=== PATIENT | female | born 1955 | race Caucasian/White ===

== ENCOUNTER → 2017-02-17 | Outpatient (CLI) | payer BC ==
[~2017-02-17] MED LIST: ALPR-411 PO; CALC500C70 PO; CETI10TA84 PO; CHOL1000 PO; DEXL60CA4 PO; DICL-201 PO; MULTTAB58 PO; SERT50TA PO; [UNRECOGNIZED DRUG - CODE] PO
--- NOTE | 2017-02-17 09:16 | DIAGNOSTIC IMAGING REPORT ---
ABDOMEN GI AND SMALL BOWEL FOLLOW-THROUGH CLINICAL HISTORY: Abdominal pain, radiating to the right upper quadrant. Constipation, weight loss, bloating. COMPARISON STUDY: None FLUOROSCOPY TIME: 2.5 minutes. 33 fluoroscopic spot images were acquired.. FINDINGS: No esophageal or gastric masses are visualized. The duodenal bulb appears normal. Ligament Treitz is located in the normal anatomical position. The patient was administered Enterovue a small bowel follow-through was performed. Contrast reached the colon 40 minutes. No abnormally dilated loops of jejunum or ileum are visualized. There is no evidence for abnormal loop separation. Spot films of terminal ileum are normal. IMPRESSION: Normal study Electronically signed by: Damien Coello M.D. 02/17/2017 9:14 AM Dictated Date/Time: 02/17/2017 9:10 AM
== END | disposition home or self-care (01) ==
LOC: C.RAD 07:55
PROVIDERS: ATTEND Physician Assistant
DX: R10.9 Unspecified abdominal pain (principal)

== ENCOUNTER → 2017-02-24 | Day surgery (SDC) | payer BC ==
[2017-02-21 14:40] VITALS: Ht 162.6 cm; Wt 56.8 kg
[~2017-02-24] VITALS: Ht 162.6 cm; Wt 56.8 kg
[~2017-02-24] MED LIST changes: +LIDOCAINE HCL 2% 2 ML VIAL (20MG/ML) ONE; +MIDAZOLAM HCL 1 MG/ML 2ML VIAL ONE; +ONDANSETRON INJ 2 MG/ML 2 ML VIAL ONE; +PROPOFOL IV EMULSION 10 MG/ML 20 ML VIAL IV ONE; +SODIUM CHLORIDE 0.9% 500ML 500 ML IV ONE
[2017-02-24 09:18] VITALS: TEMP 36.5
--- NOTE | 2017-02-24 09:38 | Endo History and Physical ---
History & Physical Date of Service: Feb 24, 2017. Chief Complaint: BOWEL CHANGES Referring Physician: DR. TO History of Present Illness 62 yo CF who presents for colonoscopy secondary to change in bowel habits. Past Surgical History Hx Cardiac Surgery: No Hx Internal Defibrillator: No Hx Pacemaker: No Hx Abdominal Surgery: Yes ( X2) Hx of Implantable Prosthesis: No Hx Post-Op Nausea and Vomiting: Yes Hx Cancer Surgery: No Hx Thoracic Surgery: No Hx Orthopedic: No Hx Urinary Tract Surgery: No Family History None Social History Smoking Status: Never Smoker Hx Substance Use: No Hx Alcohol Use: No Allergies Coded Allergies: Adhesives (Verified Allergy, Unknown, RASH, 02/21/17) Metronidazole (Verified Allergy, Unknown, WEAKNESS, UNABLE TO WALK, INCOHERENT, 02/21/17) Sulfa Antibiotics (Verified Allergy, Unknown, LOWER ABDOMEN CRAMPING, 02/21) Current Medications Reported Home Medications Medications Dose Route/Sig Max Daily Dose Days Date Category Dose Instructions Xanax (Alprazolam) 0.5 Mg Tab 0.5 Mg PO HS 02/21/17 Reported Os-Barry 500 Plus D (Calcium/Vitamin D) Tab 1 Tab PO DAILY 02/21/17 Reported Vitamin D3 (Cholecalciferol) 1,000 Unit Tab 1 Tab PO DAILY 02/21/17 Reported Multivitamin (Multiple Vitamin) 1 Tab Tab 1 Tab PO DAILY 02/21/17 Reported Voltaren (Diclofenac Sodium) 75 Mg Tabcr 75 Mg PO BID 02/21/17 Reported WITH FOOD Zoloft (Sertraline HCl) 50 Mg Tab 50 Mg PO QAM 02/21/17 Reported Angeliq (Drospirenone-Estradiol) 1 Tab Tab 0.5 Tab PO Q2D 02/21/17 Reported Dexilant (Dexlansoprazole) 60 Mg Cap 1 Tab PO HS 02/21/17 Reported Zyrtec (Cetirizine HCl) 10 Mg Tab 10 Mg PO QAM 02/21/17 Reported Vital Signs Weight (Kilograms): 56.82 Height (Feet): 5 Height (Inches): 4 Date Time Temp Pulse Resp B/P Pulse Ox O2 Delivery O2 Flow Rate FiO2 02/24/17 09:18 36.5 80 20 111/73 98 Room Air Physical Exam General Appearance: WD/WN, no apparent distress Respiratory/Chest: Auscultation: breath sounds normal Cardiovascular: Heart Auscultation: RRR Abdomen: Bowel Sounds: normal Inspection & Palpation: soft, non-distended, no tenderness, guarding & rebound Assessment and Plan Assessment: 62 yo CF who presents for colonoscopy secondary to change in bowel habits. Plan: Proceed with colonoscopy.
--- NOTE | 2017-02-24 10:18 | Discharge Instructions ---
Endoscopy Patient Instructions Date / Procedure(s) Performed Feb 24, 2017. Colonoscopy Allergy Information Coded Allergies: Adhesives (Verified Allergy, Unknown, RASH, 02/21/17) Metronidazole (Verified Allergy, Unknown, WEAKNESS, UNABLE TO WALK, INCOHERENT, 02/21/17) Sulfa Antibiotics (Verified Allergy, Unknown, LOWER ABDOMEN CRAMPING, 02/21) Discharge Date / Findings Feb 24, 2017. Normal colonoscopy with random colon biopsies and stool studies collected Medication Instructions OK to resume all medications today as prescribed Reported Home Medications Medications Dose Route/Sig Max Daily Dose Days Date Category Dose Instructions Xanax (Alprazolam) 0.5 Mg Tab 0.5 Mg PO HS 02/21/17 Reported Os-Barry 500 Plus D (Calcium/Vitamin D) Tab 1 Tab PO DAILY 02/21/17 Reported Vitamin D3 (Cholecalciferol) 1,000 Unit Tab 1 Tab PO DAILY 02/21/17 Reported Multivitamin (Multiple Vitamin) 1 Tab Tab 1 Tab PO DAILY 02/21/17 Reported Voltaren (Diclofenac Sodium) 75 Mg Tabcr 75 Mg PO BID 02/21/17 Reported WITH FOOD Zoloft (Sertraline HCl) 50 Mg Tab 50 Mg PO QAM 02/21/17 Reported Angeliq (Drospirenone-Estradiol) 1 Tab Tab 0.5 Tab PO Q2D 02/21/17 Reported Dexilant (Dexlansoprazole) 60 Mg Cap 1 Tab PO HS 02/21/17 Reported Zyrtec (Cetirizine HCl) 10 Mg Tab 10 Mg PO QAM 02/21/17 Reported Provider Instructions Activity Restrictions - No exercising or heavy lifting for 24 hours. - Do not drink alcohol the day of the procedure. - Do not drive a car or operate machinery until the day after the procedure. - Do not make any important decisions or sign important papers in 24 hours after the procedure. Following Day: - Return to full activity which may include returning to work/school. Diet Start your diet with liquids and light foods (jello, soup, juice, toast). Then eat your usual diet if not nauseated. Treatment For Common After Affects For mild abdominal pain, bloating, or excessive gas: - Rest - Eat lightly - Lie on right side Follow-Up Information Follow-up with DR. TO as scheduled Anesthesia Information What You Should Know You have had a procedure that required some medicine to reduce anxiety and discomfort. This treatment is called moderate sedation. After receiving the treatment, you may be sleepy, but you will be able to breathe on your own. The effects of the treatment may last for several hours. Follow these instructions along with Activity/Diet recommendations noted above: * Do NOT do anything where dizziness or clumsiness would be dangerous. * Rest quietly at home today, then you can be up and about tomorrow. * Have a responsible person stay with you the rest of today. * You may have had an I.V. today. If so, you may take the dressing off later today. Recommendations Call your doctor if: * Trouble breathing * Continuous vomiting for more than 24 hours * Temperature above 101 degrees * Severe abdominal pain or bloating * Pain not relieved by pain medicine ordered * There is increased drainage or redness from any incision * A large amount of rectal bleeding greater than 2-3 tablespoons. (If you had a polyp/s removed or have hemorrhoids, a small amount of blood - from the rectum is to be expected.) * You have any unanswered questions or concerns. IN THE EVENT OF A SERIOUS EMERGENCY, GO TO THE NEAREST EMERGENCY ROOM Your discharge instructions were prepared by provider Seb Chang. Patient Instructions Signature Page Maria De Jesus Negro Patient (or Guardian) Signature/Date: I have read and understand the instructions given to me by my caregivers. Caregiver/RN/Doctor Signature/Date: The above-named patient and/or guardian has received patient instructions on this date. + Original Patient Signature Page (only) stays with chart. Please make copy for patient.
--- NOTE | 2017-02-24 10:38 | Anesthesiology Progress Note ---
Anesthesia Post Op Note Date & Time Feb 24, 2017 at 10:37 Vital Signs Pain Intensity: 0 Vital Signs Past 12 Hours Date Time Temp Pulse Resp B/P Pulse Ox O2 Delivery O2 Flow Rate FiO2 02/24/17 10:27 70 19 109/69 99 Room Air 02/24/17 10:20 75 18 94/60 98 Room Air 02/24/17 09:18 36.5 80 20 111/73 98 Room Air Notes Mental Status: alert / awake / arousable, participated in evaluation Pt Amnestic to Procedure: Yes Nausea / Vomiting: adequately controlled Pain: adequately controlled Airway Patency, RR, SpO2: stable & adequate BP & HR: stable & adequate Hydration State: stable & adequate Anesthetic Complications: no major complications apparent Pt doing well.
--- NOTE | 2017-02-24 10:42 | GI REPORT ---
Procedure Date: 02/24/2017 9:48 AM Procedure: Colonoscopy Indications: Change in bowel habits Medicines: Monitored Anesthesia Care Complications: No immediate complications. Estimated Blood Loss: Estimated blood loss: none. Procedure: Pre-Anesthesia Assessment: - Prior to the procedure, a History and Physical was performed, and patient medications and allergies were reviewed. The patient's tolerance of previous anesthesia was also reviewed. The risks and benefits of the procedure and the sedation options and risks were discussed with the patient. All questions were answered, and informed consent was obtained. Prior Anticoagulants: The patient has taken no previous anticoagulant or antiplatelet agents. ASA Grade Assessment: II - A patient with mild systemic disease. After reviewing the risks and benefits, the patient was deemed in satisfactory condition to undergo the procedure. After I obtained informed consent, the scope was passed under direct vision. Throughout the procedure, the patient's blood pressure, pulse, and oxygen saturations were monitored continuously. The scope was introduced through the anus and advanced to the terminal ileum. The colonoscopy was performed without difficulty. The patient tolerated the procedure well. The quality of the bowel preparation was good. The terminal ileum, ileocecal valve, appendiceal orifice, and rectum were photographed. Findings: The colon (entire examined portion) appeared normal. Several random biopsies were obtained in the entire colon with cold forceps for histology. Fluid aspiration for cytology was performed. Impression: - The entire examined colon is normal. Fluid aspiration performed. - Several random biopsies were obtained in the entire colon. Recommendation: - Resume previous diet. - Continue present medications. - Repeat colonoscopy for surveillance based on pathology results. - Return to primary care physician as previously scheduled. Seb Chang, 02/24/2017 10:20:29 AM This report has been signed electronically. Note Initiated On: 02/24/2017 9:48 AM I attest to the content of the Intraoperative Record and orders documented therein, exceptions below
[2017-02-24 10:54] VITALS: BP 116/71; PULSE 63; O2SAT 99
== END | disposition home or self-care (01) ==
LOC: C.GI 08:51
PROVIDERS: ATTEND Internal Medicine
DX: R19.4 Change in bowel habit (principal); K63.89 Other specified diseases of intestine; Z98.890 Other specified postprocedural states; Z88.2 Allergy status to sulfonamides; Z88.8 Allergy status to other drugs, medicaments and biological substances

== ENCOUNTER → 2017-04-17 | Outpatient (CLI) | payer BC ==
[~2017-04-17] MED LIST changes: -LIDOCAINE HCL 2% 2 ML VIAL (20MG/ML) ONE; -MIDAZOLAM HCL 1 MG/ML 2ML VIAL ONE; -ONDANSETRON INJ 2 MG/ML 2 ML VIAL ONE; -PROPOFOL IV EMULSION 10 MG/ML 20 ML VIAL IV ONE; -SODIUM CHLORIDE 0.9% 500ML 500 ML IV ONE
--- NOTE | 2017-04-17 08:22 | DIAGNOSTIC IMAGING REPORT ---
PELVIC ULTRASOUND, TRANSABDOMINAL AND TRANSVAGINAL HISTORY: PELVIC AND PERINEAL PAIN COMPARISON: Pelvic ultrasound 03/10/2013. FINDINGS: Uterus: 5.9 x 2.9 x 3.7 cm. There are few small nabothian cysts, unchanged. Evidence for scar. Endometrial stripe: 2 mm in thickness. There is minimal fluid within the endometrium. Right ovary: Normal in size and demonstrates normal color flow. Left ovary: Normal in size and demonstrates normal color flow. Miscellaneous:No pelvic free fluid. IMPRESSION: No significant abnormality identified within the pelvis. Electronically signed by: Rony Arenas M.D. 04/17/2017 8:21 AM Dictated Date/Time: 04/17/2017 8:20 AM
== END | disposition home or self-care (01) ==
LOC: C.ULTR 07:33
PROVIDERS: ATTEND Family Medicine
DX: R10.2 Pelvic and perineal pain (principal)

== ENCOUNTER → 2017-07-22 | Outpatient (CLI) | payer BC ==
--- NOTE | 2017-07-23 07:56 | MAMMOGRAPHY REPORT ---
BILATERAL DIGITAL SCREENING MAMMOGRAM TOMOSYNTHESIS WITH CAD: 07/22/2017 CLINICAL HISTORY: Routine screening. Patient has no complaints. TECHNIQUE: Breast tomosynthesis in addition to standard 2D mammography was performed. Current study was also evaluated with a Computer Aided Detection (CAD) system. COMPARISON: Comparison is made to exams dated: 07/16/2016 mammogram, 07/10/2015 mammogram, 07/06/2014 m ammogram, 06/21/2013 mammogram, 06/19/2012 mammogram, and 06/18/2011 mammogram - [facility] enter. BREAST COMPOSITION: The tissue of both breasts is heterogeneously dense, which may obscure small mas ses. FINDINGS: There are is stable groupings of benign-appearing rounded and rim calcifications in both b reasts, and minimal vascular calcification. No suspicious spiculated or irregular mass, architectura l distortion or cluster of new, suspicious microcalcifications is seen. IMPRESSION: ACR BI-RADS CATEGORY 1: NEGATIVE There is no mammographic evidence of malignancy. A 1 year screening mammogram is recommended. The pa tient will receive written notification of the results. Approximately 10% of breast cancers are not detected with mammography. A negative mammographic report should not delay biopsy if a clinically suggestive mass is present. Beronica Lopez M.D. ay/:07/22/2017 18:18:22 Retail Sales Consultant: Jeanette WALTERS)([place]), [facility] letter sent: Normal 1/2 BI-RADS Code: ACR BI-RADS Category 1: Negative
== END | disposition home or self-care (01) ==
LOC: C.MAMM 16:10
PROVIDERS: ATTEND Family Medicine
DX: Z12.31 Encounter for screening mammogram for malignant neoplasm of breast (principal)